=== PATIENT | male | born 1955 | race Caucasian/White ===

== ENCOUNTER 2016-06-07 06:53 | Day surgery (SDC) | payer BC ==
[2016-06-05 13:38] LABS: HEMATOCRIT 42.3 % (40.0-51.0); HEMOGLOBIN 14.3 g/dL (13.6-17.8)
[2016-06-05 13:52] LABS: BUN (BLOOD UREA NITROGEN) 9 MG/DL (6-23); CALCIUM, SERUM 9.3 MG/DL (8.5-10.4); CHLORIDE, SERUM 107 MMOL/L (96-112); CO2 (CARBON DIOXIDE) 28 MMOL/L (24-34); GFR AFRICAN AMERICAN 95 ML/MIN (>=60); GFR NON AFRICAN AMERICAN 82 ML/MIN (>=60); GLUCOSE, SERUM 85 MG/DL (60-99); POTASSIUM, SERUM 4.4 MMOL/L (3.5-5.3); SODIUM, SERUM 143 MMOL/L (135-148)
--- NOTE | ~2016-06-07 | OP ---
Record Of [facility] [address]. [address] NAME: DMIA HEALY : 57 STATUS : [facility]#: [id number] AGE: 60 ADM/REG DATE : 06/07/16 MR#: [id number] REPORT SERV DATE: 06/21/16 DICTATED BY: DATE: REPORT STATUS : Draft TRANSCRIBED BY: MODL DATE: 06/21/16 DATE OF PROCEDURE: PREOPERATIVE DIAGNOSIS: Mass of the posterior neck. POSTOPERATIVE DIAGNOSIS: Mass of the posterior neck. PROCEDURE PERFORMED: Excision of neck mass, approximately 2 cm in size. ANESTHESIA: General. COMPLICATIONS: None. DISPOSITION: PACU and then home. CONDITION: Stable. SPECIMENS: Posterior neck mass. INTRAVENOUS FLUIDS: Per Anesthesia. ESTIMATED BLOOD LOSS: Minimal. INDICATION FOR PROCEDURE: Dima Healy is a 60-year-old male with history of persistent neck mass that has enlarged over an extended period of time. He presents today for excision and biopsy of the mass. He has signed a written informed consent. DESCRIPTION OF PROCEDURE: After adequate consent was confirmed, the patient was brought to the operating room and placed on the operating table in supine position. General endotracheal anesthesia was induced. The patient was prepped and draped in a sterile surgical fashion. Posterior neck was injected with 5 mL of 1% lidocaine with 1:100,000 epinephrine. Skin incision was made with a 15 blade along the neck line. Tenotomy scissors and Bovie electrocautery were used to dissect down through the subcutaneous tissue. The two firm masses were identified and removed for permanent pathology. Hemostasis was obtained using Bovie electrocautery after which no bleeding was noted. The wound was then closed using 3-0 Vicryl in a vertical mattress fashion, followed by 6-0 Prolene in a running fashion. The patient was turned to the care of Anesthesia anesthetic. He was awakened, extubated, and taken to the PACU in excellent condition. ADRIANA/PATTY Luis Felipe Collazo MD Record Of [facility] [address]. [address] NAME: DIMA HEALY : 57 STATUS : [facility] PAT#: [id number] AGE: 60 ADM/REG DATE : 06/07/16 MR#: [id number] REPORT SERV DATE: 06/21/16 DICTATED BY: DATE: REPORT STATUS : Draft TRANSCRIBED BY: MODL DATE: 06/21/16 / [id number] CC: MD Dima Cintron M.D.
[~2016-06-07 06:53] MED LIST: ALTACE10 MG PO; AMB10 PO; ASAB PO; BL FLAX SEED1000 MG OR; CYANO1000T PO; FISH-EPA1000 MG PO; FOLIC PO; GLUCCHONDR PO; LIPITOR20 PO; MEVACOR40 MG PO; MOVE FREE JOIN1 EACH PO; MULTIPLE VIT PO; PRAVACHOL40 MG PO; PREV30 PO; PRILO PO; PRIN20 PO; SUPER B COMP PO; TURMERIC; UBIQUINOL; VITAMIN D31000 UNIT PO; VITC500 PO
[2016-06-07 07:55] LABS: PARTIAL THROMBO TIME 30.9 SEC (22.5-37.2)
== END 2016-06-07 23:59 | disposition home or self-care (01) ==
LOC: SDC 06:53
PROVIDERS: Otolaryngology
PROC: 0WB60ZZ Excision of Neck, Open Approach (ICD-10-PCS; 2016-06-07)
PROC: 0JQ50ZZ Repair Left Neck Subcutaneous Tissue and Fascia, Open Approach (ICD-10-PCS; principal; 2016-06-07 07:45)
DX: C82.11 Follicular lymphoma grade II, lymph nodes of head, face, and neck (principal); I10 Essential (primary) hypertension; K21.9 Gastro-esophageal reflux disease without esophagitis; G47.00 Insomnia, unspecified; Z88.8 Allergy status to other drugs, medicaments and biological substances; Z95.0 Presence of cardiac pacemaker; Z86.010 Personal history of colon polyps; Z90.49 Acquired absence of other specified parts of digestive tract; Z79.82 Long term (current) use of aspirin; Z79.2 Long term (current) use of antibiotics; Z79.899 Other long term (current) drug therapy; Z98.890 Other specified postprocedural states
CPT/HCPCS: 80048; 85014; 85018; 85610; 85730; 88307; 88341; 88342; 93005; A9270-GY; J0330; J0690; J2250; J2405; J2710; J3010